=== PATIENT | male | born 1950 | race Caucasian/White ===

== ENCOUNTER 2020-09-30 12:00 | Emergency (ER) | payer BC, MEDICARE ==
[~2020-09-30] VITALS: Ht 185.4 cm; Wt 104.3 kg
[2020-09-30 12:00] VITALS: BP 136/79
--- NOTE | 2020-09-30 12:30 | NUR ---
ED Nurse Note: Pt walked into Ed due to tingling, blurry vision, feeling fazy, and numbness to the left arm x3 days msot of the time happens at night. pt stated; he went to the urgent care and told to got to Ed for further evaluation. pt is on monitor, vitals are stable. A&ox 4, verbal and no sob. pt denied headache. We will keep monitoring the pt.
[2020-09-30] MEDS: Omnipaque-300 100ml vial INJ ONE (13:27)
[2020-09-30 13:58] LABS: ANION GAP 6 mmol/L (5-15); BLOOD UREA NITROGEN 21 mg/dL (7-18); CALCIUM 8.9 MG/DL (8.5-10.1); CARBON DIOXIDE 29 MMOL/L (21-32); CHLORIDE 102 MMOL/L (98-107); CREATININE 1.1 MG/DL (0.55-1.30); POTASSIUM 4.5 MMOL/L (3.5-5.1); SODIUM 137 MMOL/L (136-145)
[2020-09-30 14:05] VITALS: BP 122/78
[2020-09-30 14:11] LABS: ALANINE AMINOTRANSFERASE 50 U/L (12-78); ALBUMIN 4.1 G/DL (3.4-5.0); ALBUMIN/GLOBULIN RATIO 1.2 (1.0-2.7); ALKALINE PHOSPHATASE 76 U/L (46-116); ASPARTATE AMINO TRANSFERASE 26 U/L (15-37); BILIRUBIN,TOTAL 0.4 MG/DL (0.2-1.0)
[2020-09-30 14:20] LABS: BASOPHILS % (AUTO) 1.1 % (0.0-2.0); EOSINOPHILS % (AUTO) 2.6 % (0.0-3.0); HEMATOCRIT 43.5 % (42.0-52.0); HEMOGLOBIN 14.4 G/DL (14.2-18.0); LYMPHOCYTES % (AUTO) 42.3 % (20.0-45.0); MEAN CORPUSCULAR VOLUME 99 FL (80-99); MONOCYTES % (AUTO) 8.4 % (1.0-10.0); NEUTROPHILS % (AUTO) 45.6 % (45.0-75.0); PLATELET COUNT 189 K/UL (150-450); RED BLOOD COUNT 4.38 M/UL (4.70-6.10); RED CELL DISTRIBUTION WIDTH 12.7 % (11.6-14.8); WHITE BLOOD COUNT 4.4 K/UL (4.8-10.8)
--- NOTE | 2020-09-30 14:31 | NUR ---
ED Nurse Note: Pt was taken to CT via kylie accompanied by a tech.
--- NOTE | 2020-09-30 14:54 | NUR ---
ED Nurse Note: Pt returned from CT, not in any distress.
--- NOTE | 2020-09-30 15:37 | Diagnostic Imaging Report ---
Indications: Left arm numbness for 3 days Technique: Spiral acquisitions obtained through the brain. Angled axial and coronal 5 x 5 mm slices were reconstructed. Total dose length product 1098 mGycm. CTDI vol(s) 53 mGy. Dose reduction achieved using automated exposure control Comparison: None. Findings: No acute intracranial hemorrhage or edema. No mass effect nor midline shift. Normal manriquez-white differentiation. Normal size ventricles and extra-axial CSF spaces. Visualized orbits and sinuses are unremarkable. The mastoids are clear. The calvarium is intact. Impression: Negative The CT scanner at [facility] is accredited by the [employer] and the scans are performed using protocols designed to limit radiation exposure to as low as reasonably achievable to attain images of sufficient resolution adequate for diagnostic evaluation.
--- NOTE | 2020-09-30 16:39 | Diagnostic Imaging Report ---
ndication: Left arm numbness, tingling, blurry vision Technique: IV administration nonionic contrast. Spiral acquisitions obtained through the neck. Multiplanar and 3-D reconstructions were generated on an integrated workstation. Total dose length product 697 mGycm. CTDIvol(s) 2, 47, 14 mGy. Dose reduction achieved using automated exposure control Comparison: none Findings: Aortic arch is unremarkable. The branching anatomy of the great neck vessels is unremarkable. The proximal left brachiocephalic artery is patent and nonstenotic. The origin of the right vertebral artery is patent, but the vertebral artery occludes approximately 1 cm beyond its origin. It appears to taper at the point of occlusion. It is then occluded over nearly its entire length. There is an area of density at the level of the C3-4 disc. This probably represents a mural calcification, although could represent a focus of reconstitution.. The distalmost vertebral artery is patent, presumably supplied by retrograde filling from the right vertebral artery. This then fills the left PICA. The distal right vertebral artery demonstrates mild stenosis at its entrance into the foramen magnum, and is a small caliber vessel distal to the right PICA origin. There is also suggestion of a thread of contrast within the arterial lumen at the level between the C1 foramen and the foramen magnum. There is a focus of mural calcification along the occluded intracranial portion of the left vertebral artery. Patent nonstenotic right brachiocephalic, common carotid, and internal carotid arteries. Patent nonstenotic proximal right subclavian artery. Patent nonstenotic right vertebral artery. Patent nonstenotic left common carotid and internal carotid arteries. Patent bilateral ophthalmic arteries. The proximal intracranial branches of the [place] vessels are patent without definite significant stenosis. There appears to be a patent anterior communicating artery. Neither posterior communicating artery is demonstrated. There is a left maxillary sinus polyp versus mucous retention cyst. The upper aerodigestive tract is unremarkable. A few small bullae are seen in the upper lobe of the right lung. Impression: Occluded left vertebral artery, as detailed above, with occlusion extending from 1 cm beyond the origin to the PICA origin, with a small thready segment of reconstitution between the C1 foramen and the foramen magnum. Although possibly congenital/developmental, suspect that this is acquired this could be due to atherosclerotic disease. However, given the lack of atherosclerotic disease elsewhere and the tapered appearance of the proximal occlusion, the possibility of dissection as etiology of this could also be considered. Appearance is nonspecific as regards the acuity of the occlusion Patent right vertebral artery, which is only supply to the posterior circulation, particularly given the absence of either posterior communicating artery. Note, that the intracranial portion of the right vertebral artery is fairly small; suspect that the left vertebral artery was the dominant artery when patent. No evidence of significant extracranial arterial insufficiency of the anterior circulation vessels Incidental finding of left maxillary sinus polyp versus mucous retention cyst Findings phoned to Dr. Akins in the emergency room at the time of interpretation The CT scanner at [facility] is accredited by the [employer] and the scans are performed using protocols designed to limit radiation exposure to as low as reasonably achievable to attain images of sufficient resolution adequate for diagnostic evaluation.
--- NOTE | 2020-09-30 17:01 | Emergency Room Report ---
History of Present Illness General Chief Complaint: General Complaint Source: Patient (Chance Parra MD) Present Illness HPI Patient is a 70-year-old male who was referred from urgent care. Patient had reportedly had increasingly frequent episodes of left arm numbness. Denies any current numbness or weakness. Denies any difficulty with speech or facial droop. Numbness was involving the entire left upper extremity. Denies any significant current pain to his neck or chest discomfort during his episodes. Episodes are intermittent occurred during both rest and during exertion. Patient had prior history of HIV was well controlled with medications. Patient reports having previous episodes of neck pain for which he was seeing a chiropractor. Apparently had high velocity neck manipulation. Had some previous vertigo episodes which were thought to be from inner ear infection. 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 COVID-19 Screening: Negative COVID-19 COVID-19 Testing Source: clinic (Chance Parra MD) Patient History Past Medical History: see triage record, HIV Reviewed Nursing Documentation: PMH: Agreed; PSxH: Agreed (Chance Parra MD) Review of Systems Neurological: Reports: numbness, paresthesia All Other Systems: negative except mentioned in HPI (Chance Parra MD) Physical Exam Vital Signs Date Time Temp Pulse Resp B/P (MAP) Pulse Ox O2 Delivery O2 Flow Rate FiO2 09/30/20 12:00 55 16 09/30/20 12:00 97.0 136/79 98 Room Air Sp02 EP Interpretation: reviewed, normal General Appearance: normal inspection, well appearing, no apparent distress, alert, GCS 15 Head: atraumatic ENT: normal ENT inspection, hearing grossly normal, normal voice Neck: normal inspection, full range of motion, supple, no bony tend Respiratory: normal inspection, lungs clear, normal breath sounds, no respiratory distress, no retraction, no wheezing Cardiovascular #1: regular rate, rhythm, no edema Gastrointestinal: normal inspection, normal bowel sounds, non tender, soft, no guarding, no hernia Genitourinary: no CVA tenderness Musculoskeletal: normal inspection, back normal, normal range of motion Neurologic: alert, motor strength/tone normal, horser up III-XII nml as tested, oriented x3, responsive, speech normal, normal inspection Psychiatric: normal inspection, judgement/insight normal, mood/affect normal Skin: no rash (Chance Parra MD) Medical Decision Making Diagnostic Impression: Primary Impression: Paresthesia of left arm Additional Impression: Vertebral artery dissection ER Course Patient presented for left upper extremity paresthesias. Differential diagnosis include was not limited to myocardial infarction, cervical radiculopathy, vertebral artery dissection, CVA among others. Because of complexity of patient's case laboratory tests and imaging studies were ordered. Patient's history does show some episodic numbness to his extremity which appears to be coming more frequently occurring. Is unclear if this is related to cardiac issue versus vascular issue. Patient did not show any evidence of current neurologic deficit. CT imaging as well as laboratory testing was ordered. Patient was endorsed to Dr. Akins pending imaging studies results. Labs Test 09/30/20 13:25 09/30/20 13:50 Sodium Level 137 MMOL/L (136-145) Potassium Level 4.5 MMOL/L (3.5-5.1) Chloride Level 102 MMOL/L (98-107) Carbon Dioxide Level 29 MMOL/L (21-32) Anion Gap 6 mmol/L (5-15) Blood Urea Nitrogen 21 mg/dL (7-18) Creatinine 1.1 MG/DL (0.55-1.30) Estimat Glomerular Filtration Rate > 60 mL/min (>60) Glucose Level 95 MG/DL (74-106) Calcium Level 8.9 MG/DL (8.5-10.1) Total Bilirubin 0.4 MG/DL (0.2-1.0) Aspartate Amino Transf (AST/SGOT) 26 U/L (15-37) Alanine Aminotransferase (ALT/SGPT) 50 U/L (12-78) Alkaline Phosphatase 76 U/L (46-116) Troponin I 0.000 ng/mL (0.000-0.056) Total Protein 7.5 G/DL (6.4-8.2) Albumin 4.1 G/DL (3.4-5.0) Globulin 3.4 g/dL Albumin/Globulin Ratio 1.2 (1.0-2.7) Thyroid Stimulating Hormone (TSH) 1.650 uiU/mL (0.358-3.740) White Blood Count 4.4 K/UL (4.8-10.8) Red Blood Count 4.38 M/UL (4.70-6.10) Hemoglobin 14.4 G/DL (14.2-18.0) Hematocrit 43.5 % (42.0-52.0) Mean Corpuscular Volume 99 FL (80-99) Mean Corpuscular Hemoglobin 32.9 PG (27.0-31.0) Mean Corpuscular Hemoglobin Concent 33.1 G/DL (32.0-36.0) Red Cell Distribution Width 12.7 % (11.6-14.8) Platelet Count 189 K/UL (150-450) Mean Platelet Volume 6.4 FL (6.5-10.1) Neutrophils (%) (Auto) 45.6 % (45.0-75.0) Lymphocytes (%) (Auto) 42.3 % (20.0-45.0) Monocytes (%) (Auto) 8.4 % (1.0-10.0) Eosinophils (%) (Auto) 2.6 % (0.0-3.0) Basophils (%) (Auto) 1.1 % (0.0-2.0) Prothrombin Time 11.0 SEC (9.30-11.50) Prothromb Time International Ratio 1.0 (0.9-1.1) Activated Partial Thromboplast Time 23 SEC (23-33) (Chance Parra MD) ER Course I received a call from radiology the patient has a right-sided vertebral artery occlusion likely an arterial dissection. Suspected that this was a result of cervical manipulation done from the patient's chiropractor. I reevaluate the patient and he had a normal neurologic examination and was completely asymptomatic here in the emergency room. He was given 325 mg of aspirin p.o. I spoke with the neuro interventionalists at [facility] Dr. Martins who believe that due to the fact that the patient is asymptomatic at this time he likely will be able to be discharged on daily aspirin and outpatient follow- up for repeat neuroimaging in 3 months. Awaiting callback from [facility] stroke physician Dr. Brasher. I spoke with Dr. Brasher who agrees patient is stable for outpatient follow up in 2 months. Patient was told to take aspirin daily and was given a prescription for a 90 day supply. He was given strict return precautions to come back to the ER if he has worsening neurologic symptoms, headache, or nausea. He expressed understanding and was discharged. (Aristides Akins M.D.) Last Vital Signs Date Time Temp Pulse Resp B/P (MAP) Pulse Ox O2 Delivery O2 Flow Rate FiO2 09/30/20 12:12 97.7 61 19 120/80 (93) 98 09/30/20 12:00 Room Air Status: unchanged (Chance Parra MD) Disposition: SHORT-TERM HOSP Condition: Stable Scripts Aspirin* (ASPIRIN*) 325 Mg Tablet 325 MG ORAL DAILY for Antiplatelet for 90 Days, TAB Prov: Aristides Akins M.D. 09/30/20 Referrals: NON PHYSICIAN (PCP) Chance Parra MD Sep 30, 2020 17:01 Aristides Akins M.D. Sep 30, 2020 17:15
[2020-09-30 17:08] VITALS: BP 124/76
[2020-09-30] MEDS ORDERED: ASPIRIN325 MG ORAL (17:22)
[2020-09-30 17:40] VITALS: BP 124/76
--- NOTE | 2020-09-30 17:40 | NUR ---
ED Nurse Note: Pt cleared by ERMD for discharge. DC instructions/prescription was given and explained to pt and verbalized understanding of teachings. All medical deviecs such as ID band and IV line removed. Pt is AAO x4, ambulatory and left with all personal belongings.
== END 2020-09-30 17:40 | disposition home or self-care (01) ==
LOC: EMR 13:00
DX: R20.2 Paresthesia of skin (principal); I77.74 Dissection of vertebral artery; Z21 Asymptomatic human immunodeficiency virus [HIV] infection status
CPT/HCPCS: 36415; 70450; 70498; 80053; 84443; 84484; 85025; 85610; 85730; 93005; 99285; Q9967